=== PATIENT | male | born 1970 | race Caucasian/White ===

== ENCOUNTER 2016-09-05 11:12 | Emergency (ER) | payer BC ==
[2016-09-05 13:44] VITALS: BP 120/76
--- NOTE | 2016-09-05 14:02 | UC ---
Throat Pain/Nasal Madi HPI - HPI Summary HPI Summary: 46 male presents with complaints of head congestion, nasal congestion, headache , subjective fever/chills and cough that has been ongoing for the past 5 days. Patient states the symptoms have not gotten any better. Admits to green/yellow colored sputum with cough and blowing nose. Has not taken any medication other than Aspirin for the fever. States he had fever/chills Saturday09/02/16 but that has since improved. When he bends over the head pressure worsens. Also admits to back pain when coughing. Denies abdominal pain, nausea, vomiting, diarrhea, chest pain and difficulty breathing. No PMHx. States he gets these symptoms during this time of year often, and sinus infections. - History of Current Complaint Chief Complaint: UCRespiratory Stated Complaint: RESP COMPLAINT Time Seen by Provider: 09/05/16 13:46 Hx Obtained From: Patient Onset/Duration: Sudden Onset, Lasting Days - ~5, Still Present Severity: Moderate Pain Intensity: 4 Pain Scale Used: 0-10 Numeric Cough: Productive - green/yellow Associated Signs & Symptoms: Positive: Dysphagia, Sinus Discomfort, Nasal Discharge, Fever - Allergies/Home Medications Allergies/Adverse Reactions: Allergies Allergy/AdvReac Type Severity Reaction Status Date / Time No Known Allergies Allergy Verified 02/09/14 13:19 PMH/Surg Hx/FS Hx/Imm Hx - Additional Past Medical History Additional PMH: Denies diabetes, htn and asthma, none. - Surgical History Surgical History: None - Family History Known Family History: Positive: None - Social History Alcohol Use: Weekly Substance Use Type: None Smoking Status (MU): Current Some Day Smoker Type: Cigarettes Length of Time of Smoking/Using Tobacco: quit 15 years ago Household Exposure Type: Cigarettes, Cigars - Immunization History Vaccination Up to Date: Yes Review of Systems Constitutional: Fever, Chills, Fatigue Eyes: Negative ENT: Sore Throat, Ear Ache, Nasal Discharge Respiratory: Cough Cardiovascular: Negative Gastrointestinal: Negative Motor: Negative Musculoskeletal: Arthralgia - back Neurological: Headache All Other Systems Reviewed And Are Negative: Yes Physical Exam Triage Information Reviewed: Yes Appearance: No Pain Distress, Well-Nourished, Ill-Appearing - droopy eyes, sounds congested Vital Signs: Initial Vital Signs Temp 98.3 F 09/05/16 11:47 Pulse 54 09/05/16 11:47 Resp 17 09/05/16 11:47 BP 121/77 09/05/16 11:47 Pulse Ox 100 09/05/16 11:47 Vital Signs Reviewed: Yes Eyes: Positive: Conjunctiva Clear ENT: Positive: Normal ENT inspection, Hearing grossly normal, Pharyngeal erythema, Nasal congestion, Nasal drainage, TMs normal. Negative: Tonsillar swelling, Tonsillar exudate Dental: Positive: Percussion Tenderness @ - maxillary and frontal b/l. Negative : Cervical Lymphadenopathy Neck: Positive: Supple, Nontender, No Lymphadenopathy Respiratory: Positive: Chest non-tender, Lungs clear, Normal breath sounds, No respiratory distress, No accessory muscle use. Negative: Rhonchi, Stridor, Wheezing Cardiovascular: Positive: RRR, No Murmur, Pulses Normal - 2+, Brisk Capillary Refill - <2 seconds Abdomen Description: Positive: Nontender, Soft Bowel Sounds: Positive: Present Musculoskeletal: Positive: Strength Intact, ROM Intact, No Edema Neurological: Positive: Alert Skin Exam: Normal Throat Pain/Nasal Course/Dx - Course Course Of Treatment: patient will be treated for sinusitis with augmentin and flonase due to PE findings and HPI. Ibuprofen or Tylenol for pain and fever. Fluids, rest and saline rinses. Hot showers, warm compresses. Aware of worsening signs and symptoms to watch out for. Follow up with pcp. - Differential Dx/Diagnosis Differential Diagnosis/HQI/PQRI: Influenza, Mononucleosis, Otitis Media, Pharyngitis, Sinusitis, Tonsillitis, URI, Other - allergies Provider Diagnoses: acute sinusitis Discharge - Discharge Plan Condition: Stable Disposition: HOME Prescriptions: Amoxicillin/Clavulanate TAB* [Augmentin TAB 875*] 875 mg PO BID #14 tab Fluticasone NASAL SPRAY 50MCG* [Flonase NASAL SPRAY 50MCG*] 2 spray BOTH NARES DAILY #1 btl Patient Education Materials: Sinusitis (ED) Referrals: No Primary Care Phys,NOPCP [Primary Care Provider] - [facility] [place] [facility] [Outside] Additional Instructions: Take prescribed augmentin as directed until entire dose is finished even if symptoms improve. Use flonase nasal spray to help with nasal/sinus congestion at bedtime. Saline rinses over the counter and antihistamine such as claritin/zyrtec are also recommended for decreasing congestion. Ibuprofen for discomfort and fever. Hot showers and warm compresses to cheeks/nose. Increase fluid intake and get plenty of rest. If you would like- use a cough suppressant at bedtime to help with cough. Follow up with PCP. If symptoms persist or do not improve please return or seek medical attention.
== END 2016-09-05 14:09 | disposition home or self-care (01) ==
LOC: UCEAST 11:12
DX: J01.90 Acute sinusitis, unspecified (principal); Z87.891 Personal history of nicotine dependence
CPT/HCPCS: 99212; G0463